=== PATIENT | male | born 1965 | race Caucasian/White ===

== ENCOUNTER → 2017-12-31 | Outpatient (CLI) | payer MEDICARE, MEDICAID ==
--- NOTE | 2017-12-31 14:17 | KCIC ---
MR of the left shoulder Indication: Left shoulder pain since June. Proximal biceps tendon strain a few months ago. Technique: Standard multiplanar sequences are obtained. Findings: Artifact: No significant image degradation. Acromioclavicular joint: Mildly degenerative, small undersurface osteophytes. Rotator cuff: * Supraspinatus-infraspinatus tendon: Intact * Subscapularis tendon: Intact * Muscle bulk: Within normal limits * Subacromial subdeltoid bursa: Trace effusion. Fluid: No significant glenohumeral effusion. Glenohumeral cartilage: No acute defect or advanced DJD. Labrum: No evidence of labral detachment. Biceps tendon: Intact Bones: Minimal cystic change at the posterior greater tuberosity. Soft tissue: No acute findings. Impression: 1. No evidence of rotator cuff tear or other internal derangement. 2. Mild acromioclavicular joint degenerative hypertrophy. Electronically signed by: Sterling Cook MD (12/31/2017 2:14 PM) [id number]
== END | disposition home or self-care (01) ==
LOC: KCIC MRI 11:24
DX: M19.012 Primary osteoarthritis, left shoulder (principal); M85.812 Other specified disorders of bone density and structure, left shoulder
CPT/HCPCS: 73221